=== PATIENT | female | born 1945 | race Caucasian/White ===

== ENCOUNTER 2024-06-24 15:04 | Outpatient (CLI) | payer OTHER ==
[2024-06-24] MEDS ORDERED: iohexol 300mg/ml 100ml inj. ONE (15:33)
== END 2024-06-24 23:59 | disposition home or self-care (01) ==
LOC: RAD 15:04
PROVIDERS: ATTEND Urology
DX: N39.0 Urinary tract infection, site not specified (principal); K43.9 Ventral hernia without obstruction or gangrene
CPT/HCPCS: 74177; Q9967

== ENCOUNTER 2024-07-15 10:34 | Inpatient (IN) | payer OTHER ==
[~2024-07-15] VITALS: Ht 165.1 cm; Wt 91.4 kg
[2024-07-15] VITALS (18 sets, daily range): BP systolic 97–136; BP diastolic 34–98; PULSE 77–96; RESP 16–19; TEMP 97–98.8; O2SAT 92–100
[~2024-07-15 10:34] MED LIST: simethicone 40mg/0.6ml oral drops 30ml ONE
[2024-07-15 11:11] LABS: BASOPHILS % (AUTO) 0.3 % (0-1); EOSINOPHILS # (AUTO) 0.2 X10'3 (0-0.9); EOSINOPHILS % (AUTO) 1.5 % (0-6); HEMATOCRIT 23.2 % (35.0-45.0); HEMOGLOBIN 7.5 g/dl (12.0-16.0); LYMPHOCYTES % (AUTO) 6.6 % (21-51); MEAN CORPUSCULAR HEMOGLOBIN 24.8 PG (27.0-31.0); MEAN CORPUSCULAR HGB CONC 32.2 g/dL (33.0-36.5); MEAN CORPUSCULAR VOLUME 77.1 FL (78-98); MEAN PLATELET VOLUME 8.4 FL (7.4-10.4); MONOCYTES # (AUTO) 1.1 X10'3 (0-0.9); MONOCYTES % (AUTO) 7.3 % (2-12); NEUTROPHILS % (AUTO) 84.3 % (42-75); PLATELET COUNT 242 X10'3 (140-440); RED CELL DISTRIBUTION WIDTH 15.5 % (11.5-14.5); WHITE BLOOD COUNT 15.4 X10'3 (4.5-11.0)
[2024-07-15 11:27] LABS: ALANINE AMINOTRANSFERASE 11 U/L (12-78); ALBUMIN 2.9 G/DL (3.4-5.0); ALBUMIN/GLOBULIN RATIO 1.2 (1.1-1.5); ALKALINE PHOSPHATASE 61 IU/L (46-116); ANION GAP 7 (8-16); ASPARTATE AMINO TRANSFERASE 10 U/L (10-37); BILIRUBIN,TOTAL 0.4 MG/DL (0.1-1.0); BLOOD UREA NITROGEN 42 MG/DL (7-18); BUN/CREATININE RATIO 51.2 (10.0-20.0); CALCIUM 8.1 MG/DL (8.5-10.1); CHLORIDE 108 MMOL/L (99-107); CREATININE 0.82 MG/DL (0.40-0.90); GLUCOSE 153 MG/DL (70-104); LIPASE 38 U/L (16-77); POTASSIUM 3.9 MMOL/L (3.5-5.1); SODIUM 140 MMOL/L (135-145); TOTAL PROTEIN 5.4 G/DL (6.4-8.2); eCRCL 53 ML/MIN; eGFR 68 ML/MIN
[2024-07-15] MEDS: pantoprazole 40 MG vial IV ONE ×2 (11:30→19:04)
[2024-07-15] MEDS: normal saline 1000ml 1,000 ML IV ONE (11:30)
[2024-07-15] MEDS ORDERED: iohexol 300mg/ml 100ml inj. ONE (11:33)
[2024-07-15 13:19] LABS: BILIRUBIN,URINE NEGATIVE (Neg); CLARITY,URINE CLEAR (Clear); COLOR,URINE STRAW (Yellow); GLUCOSE, URINE NEGATIVE (Neg); KETONES,URINE NEGATIVE (Neg); LEUKOCYTE ESTERASE ,URINE NEGATIVE (Neg); NITRITES, URINE NEGATIVE (Neg); OCCULT BLOOD,URINE NEGATIVE (Neg); PH,URINE 5.5 (4.8-8.0); PROTEIN,URINE NEGATIVE (Neg); UROBILINOGEN,URINE 0.2 E.U/dL (0.2-1.0)
[2024-07-15 13:23] LABS: UA COLLECTION TYPE STRAIGHT CATH
[2024-07-15] MEDS: ondansetron/PF 4mg/2ml inj IM ONE (13:44)
[2024-07-15] MEDS ORDERED: IRBE300T26 PO (13:47)
[2024-07-15] MEDS ORDERED: METH1TAB32 PO (13:47)
[2024-07-15] MEDS ORDERED: ATOR20TA66 PO (13:47)
[2024-07-15] MEDS ORDERED: CARV-50 PO (13:47)
[2024-07-15] MEDS ORDERED: DICL75TA28 PO (13:47)
[2024-07-15] MEDS: octreotide 100mcg/1 ml ampule IV ONE (13:47)
[2024-07-15] MEDS ORDERED: ESTR42.510 (13:47)
[2024-07-15] MEDS ORDERED: magnesium sulf-water 2g/50mL 50 ML IV PRN (14:55)
[2024-07-15] MEDS ORDERED: potassium Cl 20 mEq SR tablet PO PRN ×2 (14:55)
[2024-07-15] MEDS ORDERED: potassium Cl 40MEQ/1/2NS 520ml 520 ML IV PRN (14:55)
[2024-07-15] MEDS ORDERED: DEXTROSE 15 GM of carb/4 tabs (each vial/BOTTLE has 4 tablets) PO PRN ×2 (14:55)
[2024-07-15] MEDS ORDERED: glucagon, human recombinant 1mg kit SUBCUT PRN (14:55)
[2024-07-15] MEDS ORDERED: dextrose 50%-water 50ml dispensing syringe IV PRN ×2 (14:55)
[2024-07-15] MEDS ORDERED: magnesium Cl slow-release 64mg tablet PO PRN (14:55)
[2024-07-15] MEDS ORDERED: magnesium sulf-water 4G/100mL 100 ML IV PRN (14:55)
[2024-07-15 15:35] LABS: HEMOGLOBIN A1C 5.8 % (4.5-6.2)
[2024-07-15 15:48] LABS: CHOL/HDL RATIO 4.5 (0.00-4.99); CHOLESTEROL 134 MG/DL (0-200); HDL CHOLESTEROL 30 MG/DL (35-60); LDL CHOLESTEROL 74 MG/DL (50-100); TRIGLYCERIDES 139 MG/DL (20-135)
[2024-07-15] MEDS ORDERED: LIDOcaine 2% Viscous 15ml cup ONE (15:48)
[2024-07-15] MEDS ORDERED: pantoprazole 40MG/NS 100ML BAG 100 ML IV SCH (16:00)
[2024-07-15] MEDS ORDERED: fentaNYL/PF 50MCG/1 ML 2ML syringe ONE (16:41)
[2024-07-15] MEDS ORDERED: MIDAZolam 1 MG/ML 5ML VIAL ONE (16:41)
[2024-07-15] MEDS ORDERED: INSULIN LISPRO 100 UNIT/ML INSULN.PEN MULTI-DOSE SQ SCH (17:00)
[2024-07-15] MEDS: HYDROcodone/acetaminophen 5mg/325mg tablet PO ONE (17:30)
[2024-07-15] MEDS: normal saline 1000ml 1,000 ML IV SCH (19:04)
[2024-07-15] MEDS: octreotide inj. 500 MCG in normal saline 100ml IV soln 97.5 ML IV SCH (19:05)
[2024-07-15] MEDS: K and/or MAG REPLACEMENT MC SCH (19:39)
[2024-07-15 19:47] LABS: HEMATOCRIT 25.2 % (35.0-45.0); HEMOGLOBIN 8.2 g/dl (12.0-16.0); MEAN CORPUSCULAR HEMOGLOBIN 25.7 PG (27.0-31.0); MEAN CORPUSCULAR HGB CONC 32.7 g/dL (33.0-36.5); MEAN CORPUSCULAR VOLUME 78.7 FL (78-98); PLATELET COUNT 205 X10'3 (140-440); RED CELL DISTRIBUTION WIDTH 16.5 % (11.5-14.5); WHITE BLOOD COUNT 11.5 X10'3 (4.5-11.0)
[2024-07-15] MEDS: carVEDilol 12.5mg tablet PO SCH (20:31)
[2024-07-15] MEDS: pantoprazole 40MG/NS 100ML BAG 100 ML IV SCH (20:31)
[2024-07-16 01:40] LABS: HEMATOCRIT 23.5 % (35.0-45.0); HEMOGLOBIN 7.7 g/dl (12.0-16.0); MEAN CORPUSCULAR HEMOGLOBIN 25.4 PG (27.0-31.0); MEAN PLATELET VOLUME 8.3 FL (7.4-10.4); PLATELET COUNT 190 X10'3 (140-440); RED BLOOD COUNT 3.05 X10'6 (4.20-5.60); RED CELL DISTRIBUTION WIDTH 16.3 % (11.5-14.5); WHITE BLOOD COUNT 9.6 X10'3 (4.5-11.0)
[2024-07-16] MEDS: ondansetron/PF 4mg/2ml inj IV PRN (02:33)
[2024-07-16 06:15] LABS: BASOPHILS % (AUTO) 0.5 % (0-1); EOSINOPHILS # (AUTO) 0.2 X10'3 (0-0.9); EOSINOPHILS % (AUTO) 1.7 % (0-6); HEMATOCRIT 22.6 % (35.0-45.0); HEMOGLOBIN 7.4 g/dl (12.0-16.0); LYMPHOCYTES % (AUTO) 11.2 % (21-51); MEAN CORPUSCULAR HGB CONC 32.9 g/dL (33.0-36.5); MEAN CORPUSCULAR VOLUME 78.9 FL (78-98); MEAN PLATELET VOLUME 8.6 FL (7.4-10.4); MONOCYTES # (AUTO) 0.8 X10'3 (0-0.9); MONOCYTES % (AUTO) 9.1 % (2-12); NEUTROPHILS # (AUTO) 7.1 X10'3 (1.8-7.7); NEUTROPHILS % (AUTO) 77.5 % (42-75); PLATELET COUNT 180 X10'3 (140-440); RED BLOOD COUNT 2.87 X10'6 (4.20-5.60); RED CELL DISTRIBUTION WIDTH 16.5 % (11.5-14.5); WHITE BLOOD COUNT 9.1 X10'3 (4.5-11.0)
[2024-07-16 06:18] LABS: INR 1.1 INR; PROTHROMBIN TIME 11.3 SECONDS (9.0-12.0)
[2024-07-16 06:25] LABS: ALANINE AMINOTRANSFERASE 13 U/L (12-78); ALBUMIN/GLOBULIN RATIO 1.2 (1.1-1.5); ALKALINE PHOSPHATASE 58 IU/L (46-116); ANION GAP 6 (8-16); ASPARTATE AMINO TRANSFERASE 22 U/L (10-37); BILIRUBIN,TOTAL 2.4 MG/DL (0.1-1.0); BLOOD UREA NITROGEN 29 MG/DL (7-18); BUN/CREATININE RATIO 36.7 (10.0-20.0); CALCIUM 8.1 MG/DL (8.5-10.1); CHLORIDE 110 MMOL/L (99-107); CREATININE 0.79 MG/DL (0.40-0.90); GLUCOSE 144 MG/DL (70-104); MAGNESIUM 1.8 MG/DL (1.5-2.4); POTASSIUM 4.2 MMOL/L (3.5-5.1); SODIUM 139 MMOL/L (135-145); TOTAL CARBON DIOXIDE 23.2 MMOL/L (24-32); TOTAL PROTEIN 5.6 G/DL (6.4-8.2); eCRCL 55 ML/MIN; eGFR 71 ML/MIN
[2024-07-16 08:00] VITALS: BP_SYST 105; BP_SYST 111; BP_SYST 129; BP_DIAS 41; BP_DIAS 44; BP_DIAS 51; PULSE 76; PULSE 85; PULSE 86
[2024-07-16] MEDS: docusate sod 100mg capsule PO SCH (12:48)
[2024-07-16 13:31] LABS: HEMATOCRIT 22.1 % (35.0-45.0); HEMOGLOBIN 7.1 g/dl (12.0-16.0); MEAN CORPUSCULAR HEMOGLOBIN 25.5 PG (27.0-31.0); MEAN CORPUSCULAR VOLUME 79.7 FL (78-98); MEAN PLATELET VOLUME 8.6 FL (7.4-10.4); PLATELET COUNT 114 X10'3 (140-440); RED BLOOD COUNT 2.77 X10'6 (4.20-5.60); RED CELL DISTRIBUTION WIDTH 16.4 % (11.5-14.5); WHITE BLOOD COUNT 7.5 X10'3 (4.5-11.0)
[2024-07-16] MEDS: magnesium hydroxide 30ml (MOM) UD suspension PO PRN (15:21)
[2024-07-16 18:00] VITALS: BP 140/62; PULSE 80; RESP 18; TEMP 98.6; O2SAT 97
[2024-07-16 20:00] VITALS: BP_SYST 106; BP_SYST 111; BP_SYST 89; BP_DIAS 26; BP_DIAS 30; BP_DIAS 31; PULSE 71; PULSE 75; PULSE 80
[2024-07-16 22:00] VITALS: BP 106/30; PULSE 75; RESP 16; TEMP 98; O2SAT 97
[2024-07-16] MEDS: aspirin 325mg tablet PO ONE (22:40)
[2024-07-16] MEDS ORDERED: nitroGLYCERIN 0.4mg SUBLingual tab SL PRN (22:40)
[2024-07-17] VITALS (8 sets, daily range): BP systolic 93–128; BP diastolic 43–55; PULSE 70–76; RESP 16–18; TEMP 97.3–98.3; O2SAT 96–97
[2024-07-17] MEDS: morphine 2 MG/ML inj. syringe IV ONE (02:00)
[2024-07-17 07:35] LABS: BASOPHILS % (AUTO) 0.2 % (0-1); EOSINOPHILS # (AUTO) 0.2 X10'3 (0-0.9); EOSINOPHILS % (AUTO) 2.5 % (0-6); LYMPHOCYTES # (AUTO) 0.8 X10'3 (1.1-4.8); LYMPHOCYTES % (AUTO) 10.1 % (21-51); MEAN CORPUSCULAR HEMOGLOBIN 25.3 PG (27.0-31.0); MEAN CORPUSCULAR HGB CONC 32.1 g/dL (33.0-36.5); MEAN CORPUSCULAR VOLUME 78.6 FL (78-98); MEAN PLATELET VOLUME 8.3 FL (7.4-10.4); MONOCYTES # (AUTO) 0.6 X10'3 (0-0.9); MONOCYTES % (AUTO) 8.2 % (2-12); NEUTROPHILS # (AUTO) 6.1 X10'3 (1.8-7.7); PLATELET COUNT 158 X10'3 (140-440); RED BLOOD COUNT 2.58 X10'6 (4.20-5.60); RED CELL DISTRIBUTION WIDTH 16.3 % (11.5-14.5); WHITE BLOOD COUNT 7.8 X10'3 (4.5-11.0)
[2024-07-17 07:47] LABS: ALANINE AMINOTRANSFERASE 14 U/L (12-78); ALBUMIN 2.8 G/DL (3.4-5.0); ALBUMIN/GLOBULIN RATIO 1.1 (1.1-1.5); ALKALINE PHOSPHATASE 51 IU/L (46-116); ANION GAP 4 (8-16); ASPARTATE AMINO TRANSFERASE 17 U/L (10-37); BILIRUBIN,TOTAL 0.4 MG/DL (0.1-1.0); BLOOD UREA NITROGEN 13 MG/DL (7-18); BUN/CREATININE RATIO 19.7 (10.0-20.0); CALCIUM 8.1 MG/DL (8.5-10.1); CHLORIDE 110 MMOL/L (99-107); CREATININE 0.66 MG/DL (0.40-0.90); GLUCOSE 111 MG/DL (70-104); POTASSIUM 3.6 MMOL/L (3.5-5.1); SODIUM 140 MMOL/L (135-145); TOTAL CARBON DIOXIDE 26.3 MMOL/L (24-32); TOTAL PROTEIN 5.3 G/DL (6.4-8.2); eCRCL 65 ML/MIN; eGFR 87 ML/MIN
[2024-07-17 07:49] LABS: HEMATOCRIT 20.3 % (35.0-45.0); HEMOGLOBIN 6.5 g/dl (12.0-16.0)
[2024-07-17] MEDS ORDERED: traMADol 50MG tablet PO PRN (15:15)
[2024-07-17 15:29] LABS: HEMATOCRIT 23.9 % (35.0-45.0); HEMOGLOBIN 7.9 g/dl (12.0-16.0); MEAN CORPUSCULAR HEMOGLOBIN 26.3 PG (27.0-31.0); MEAN CORPUSCULAR VOLUME 79.6 FL (78-98); MEAN PLATELET VOLUME 8.3 FL (7.4-10.4); PLATELET COUNT 204 X10'3 (140-440); RED BLOOD COUNT 3.01 X10'6 (4.20-5.60); RED CELL DISTRIBUTION WIDTH 17.4 % (11.5-14.5); WHITE BLOOD COUNT 11.2 X10'3 (4.5-11.0)
[2024-07-17] MEDS: PEG 3350/Na sulf,bicarb,Cl/KCl oral sol 4 liter bottle PO ONE (16:01)
[2024-07-17] MEDS: traMADol 50MG tablet PO PRN (16:17)
[2024-07-17] MEDS ORDERED: methyl salicylate/menthol cream 57gm TP SCH (21:00)
[2024-07-18] VITALS (15 sets, daily range): BP systolic 99–146; BP diastolic 37–87; PULSE 76–97; RESP 12–24; TEMP 97.6–98.5; O2SAT 90–96
[2024-07-18 07:09] LABS: BASOPHILS % (AUTO) 0.2 % (0-1); EOSINOPHILS # (AUTO) 0.2 X10'3 (0-0.9); EOSINOPHILS % (AUTO) 1.6 % (0-6); HEMATOCRIT 23.9 % (35.0-45.0); HEMOGLOBIN 7.8 g/dl (12.0-16.0); LYMPHOCYTES # (AUTO) 0.6 X10'3 (1.1-4.8); MEAN CORPUSCULAR HEMOGLOBIN 25.9 PG (27.0-31.0); MEAN CORPUSCULAR HGB CONC 32.8 g/dL (33.0-36.5); MEAN CORPUSCULAR VOLUME 79.1 FL (78-98); MEAN PLATELET VOLUME 8.4 FL (7.4-10.4); MONOCYTES % (AUTO) 8.3 % (2-12); NEUTROPHILS # (AUTO) 10.6 X10'3 (1.8-7.7); NEUTROPHILS % (AUTO) 84.9 % (42-75); PLATELET COUNT 178 X10'3 (140-440); RED BLOOD COUNT 3.02 X10'6 (4.20-5.60); RED CELL DISTRIBUTION WIDTH 17.1 % (11.5-14.5); WHITE BLOOD COUNT 12.4 X10'3 (4.5-11.0)
[2024-07-18 07:17] LABS: PROTHROMBIN TIME 10.7 SECONDS (9.0-12.0)
[2024-07-18 07:27] LABS: ALANINE AMINOTRANSFERASE 15 U/L (12-78); ALBUMIN 3.3 G/DL (3.4-5.0); ALBUMIN/GLOBULIN RATIO 1.2 (1.1-1.5); ALKALINE PHOSPHATASE 64 IU/L (46-116); ANION GAP 7 (8-16); ASPARTATE AMINO TRANSFERASE 15 U/L (10-37); BILIRUBIN,TOTAL 0.6 MG/DL (0.1-1.0); BLOOD UREA NITROGEN 8 MG/DL (7-18); BUN/CREATININE RATIO 11.6 (10.0-20.0); CALCIUM 8.3 MG/DL (8.5-10.1); CHLORIDE 107 MMOL/L (99-107); CREATININE 0.69 MG/DL (0.40-0.90); GLUCOSE 114 MG/DL (70-104); MAGNESIUM 1.9 MG/DL (1.5-2.4); POTASSIUM 3.6 MMOL/L (3.5-5.1); SODIUM 141 MMOL/L (135-145); TOTAL CARBON DIOXIDE 27.1 MMOL/L (24-32); TOTAL PROTEIN 6.1 G/DL (6.4-8.2); eCRCL 62 ML/MIN; eGFR 83 ML/MIN
[2024-07-18] MEDS ORDERED: MIDAZolam 1 MG/ML 5ML VIAL ONE (14:34)
[2024-07-18] MEDS ORDERED: fentaNYL/PF 50MCG/1 ML 2ML syringe ONE (14:34)
[2024-07-18] MEDS ORDERED: diphenhydrAMINE 50 mg/ml inj ONE (14:39)
[2024-07-18] MEDS: Melatonin 3mg tablet PO PRN (22:06)
[2024-07-19] VITALS (9 sets, daily range): BP systolic 87–147; BP diastolic 39–64; PULSE 76–82; RESP 15–19; TEMP 96.7–99.2; O2SAT 92–94
[2024-07-19 07:00] LABS: BASOPHILS % (AUTO) 0.1 % (0-1); EOSINOPHILS % (AUTO) 0.4 % (0-6); LYMPHOCYTES # (AUTO) 0.6 X10'3 (1.1-4.8); LYMPHOCYTES % (AUTO) 5.4 % (21-51); MEAN CORPUSCULAR HEMOGLOBIN 25.7 PG (27.0-31.0); MEAN CORPUSCULAR VOLUME 80.4 FL (78-98); MEAN PLATELET VOLUME 8.4 FL (7.4-10.4); MONOCYTES # (AUTO) 1.2 X10'3 (0-0.9); MONOCYTES % (AUTO) 10.1 % (2-12); PLATELET COUNT 154 X10'3 (140-440); RED BLOOD COUNT 2.65 X10'6 (4.20-5.60); RED CELL DISTRIBUTION WIDTH 17.1 % (11.5-14.5); WHITE BLOOD COUNT 11.9 X10'3 (4.5-11.0)
[2024-07-19 07:07] LABS: INR 1.1 INR; PROTHROMBIN TIME 11.8 SECONDS (9.0-12.0)
[2024-07-19 07:09] LABS: HEMATOCRIT 21.3 % (35.0-45.0); HEMOGLOBIN 6.8 g/dl (12.0-16.0)
[2024-07-19 07:18] LABS: ALANINE AMINOTRANSFERASE 16 U/L (12-78); ALBUMIN 2.6 G/DL (3.4-5.0); ALBUMIN/GLOBULIN RATIO 0.9 (1.1-1.5); ALKALINE PHOSPHATASE 57 IU/L (46-116); ANION GAP 8 (8-16); ASPARTATE AMINO TRANSFERASE 9 U/L (10-37); BILIRUBIN,TOTAL 0.5 MG/DL (0.1-1.0); BLOOD UREA NITROGEN 10 MG/DL (7-18); BUN/CREATININE RATIO 15.6 (10.0-20.0); CHLORIDE 104 MMOL/L (99-107); CREATININE 0.64 MG/DL (0.40-0.90); GLUCOSE 137 MG/DL (70-104); MAGNESIUM 1.7 MG/DL (1.5-2.4); POTASSIUM 3.3 MMOL/L (3.5-5.1); SODIUM 140 MMOL/L (135-145); TOTAL CARBON DIOXIDE 27.6 MMOL/L (24-32); TOTAL PROTEIN 5.4 G/DL (6.4-8.2); eCRCL 67 ML/MIN; eGFR 90 ML/MIN
[2024-07-19 10:11] LABS: MEAN CORPUSCULAR HEMOGLOBIN 26.4 PG (27.0-31.0); MEAN CORPUSCULAR HGB CONC 32.7 g/dL (33.0-36.5); MEAN CORPUSCULAR VOLUME 80.7 FL (78-98); MEAN PLATELET VOLUME 9.1 FL (7.4-10.4); PLATELET COUNT 161 X10'3 (140-440); RED BLOOD COUNT 2.64 X10'6 (4.20-5.60); RED CELL DISTRIBUTION WIDTH 17.2 % (11.5-14.5); WHITE BLOOD COUNT 11.6 X10'3 (4.5-11.0)
[2024-07-19 10:25] LABS: HEMATOCRIT 21.3 % (35.0-45.0)
[2024-07-19] MEDS: pantoprazole 40MG/NS 100ML BAG 100 ML IV SCH (11:34)
[2024-07-19] MEDS: methyl salicylate/menthol cream 57gm TP PRN (11:39)
[2024-07-19] MEDS: polyvinyl alcohol eye drops 15ML BOTTLE EACHEYE PRN (11:39)
[2024-07-19 15:52] LABS: MEAN CORPUSCULAR HEMOGLOBIN 26.5 PG (27.0-31.0); MEAN CORPUSCULAR HGB CONC 32.9 g/dL (33.0-36.5); MEAN CORPUSCULAR VOLUME 80.7 FL (78-98); MEAN PLATELET VOLUME 8.8 FL (7.4-10.4); PLATELET COUNT 153 X10'3 (140-440); RED BLOOD COUNT 2.58 X10'6 (4.20-5.60); RED CELL DISTRIBUTION WIDTH 17.9 % (11.5-14.5); WHITE BLOOD COUNT 10.4 X10'3 (4.5-11.0)
[2024-07-19 15:59] LABS: HEMATOCRIT 20.8 % (35.0-45.0); HEMOGLOBIN 6.8 g/dl (12.0-16.0)
[2024-07-20] MEDS: mag hydrox/Alum hydrox/simeth 30ml oral suspension PO PRN (04:10)
[2024-07-20 04:48] LABS: BASOPHILS % (AUTO) 0.3 % (0-1); EOSINOPHILS # (AUTO) 0.2 X10'3 (0-0.9); EOSINOPHILS % (AUTO) 1.9 % (0-6); HEMATOCRIT 23.5 % (35.0-45.0); HEMOGLOBIN 7.7 g/dl (12.0-16.0); LYMPHOCYTES # (AUTO) 0.6 X10'3 (1.1-4.8); LYMPHOCYTES % (AUTO) 7.1 % (21-51); MEAN CORPUSCULAR HEMOGLOBIN 26.5 PG (27.0-31.0); MEAN CORPUSCULAR HGB CONC 32.8 g/dL (33.0-36.5); MEAN CORPUSCULAR VOLUME 80.8 FL (78-98); MEAN PLATELET VOLUME 8.3 FL (7.4-10.4); MONOCYTES # (AUTO) 0.9 X10'3 (0-0.9); MONOCYTES % (AUTO) 10.9 % (2-12); NEUTROPHILS # (AUTO) 6.7 X10'3 (1.8-7.7); NEUTROPHILS % (AUTO) 79.8 % (42-75); PLATELET COUNT 151 X10'3 (140-440); RED BLOOD COUNT 2.91 X10'6 (4.20-5.60); RED CELL DISTRIBUTION WIDTH 17.7 % (11.5-14.5); WHITE BLOOD COUNT 8.4 X10'3 (4.5-11.0)
[2024-07-20 04:58] LABS: INR 1.1 INR; PROTHROMBIN TIME 11.4 SECONDS (9.0-12.0)
[2024-07-20 05:02] LABS: ALANINE AMINOTRANSFERASE 28 U/L (12-78); ALBUMIN 2.7 G/DL (3.4-5.0); ALBUMIN/GLOBULIN RATIO 0.9 (1.1-1.5); ALKALINE PHOSPHATASE 94 IU/L (46-116); ANION GAP 10 (8-16); ASPARTATE AMINO TRANSFERASE 22 U/L (10-37); BILIRUBIN,TOTAL 0.6 MG/DL (0.1-1.0); BLOOD UREA NITROGEN 16 MG/DL (7-18); BUN/CREATININE RATIO 27.6 (10.0-20.0); CALCIUM 8.1 MG/DL (8.5-10.1); CHLORIDE 102 MMOL/L (99-107); CREATININE 0.58 MG/DL (0.40-0.90); GLUCOSE 127 MG/DL (70-104); POTASSIUM 3.6 MMOL/L (3.5-5.1); SODIUM 138 MMOL/L (135-145); TOTAL CARBON DIOXIDE 26.3 MMOL/L (24-32); TOTAL PROTEIN 5.6 G/DL (6.4-8.2); eCRCL 74 ML/MIN; eGFR > 90 ML/MIN
[2024-07-20 06:22] VITALS: BP 125/58; PULSE 67; RESP 18; TEMP 96.7; O2SAT 94
[2024-07-20 08:00] VITALS: BP 95/26; PULSE 66; RESP 16; O2SAT 98
[2024-07-20 10:00] VITALS: BP_SYST 105; BP_SYST 98; BP_DIAS 40; BP_DIAS 56; PULSE 60; PULSE 61; RESP 16; TEMP 98.2; O2SAT 98
[2024-07-20 12:28] LABS: HEMOGLOBIN 7.8 g/dl (12.0-16.0)
[2024-07-20 12:29] LABS: HEMATOCRIT 23.3 % (35.0-45.0); MEAN CORPUSCULAR HEMOGLOBIN 27.1 PG (27.0-31.0); MEAN CORPUSCULAR HGB CONC 33.3 g/dL (33.0-36.5); MEAN CORPUSCULAR VOLUME 81.3 FL (78-98); MEAN PLATELET VOLUME 9.4 FL (7.4-10.4); PLATELET COUNT 160 X10'3 (140-440); RED BLOOD COUNT 2.87 X10'6 (4.20-5.60); RED CELL DISTRIBUTION WIDTH 17.4 % (11.5-14.5); WHITE BLOOD COUNT 10.2 X10'3 (4.5-11.0)
[2024-07-20 18:00] VITALS: BP 106/58; PULSE 75; RESP 16; TEMP 98; O2SAT 96
[2024-07-20 18:23] LABS: HEMOGLOBIN 7.8 g/dl (12.0-16.0)
[2024-07-20 18:24] LABS: HEMATOCRIT 23.5 % (35.0-45.0); MEAN CORPUSCULAR HGB CONC 33.3 g/dL (33.0-36.5); MEAN CORPUSCULAR VOLUME 80.9 FL (78-98); MEAN PLATELET VOLUME 9.3 FL (7.4-10.4); RED CELL DISTRIBUTION WIDTH 17.7 % (11.5-14.5); WHITE BLOOD COUNT 9.6 X10'3 (4.5-11.0)
[2024-07-20 19:03] LABS: PLATELET COUNT 173 X10'3 (140-440)
[2024-07-20 20:00] VITALS: BP_SYST 103; BP_SYST 106; BP_DIAS 42; BP_DIAS 46; PULSE 61; PULSE 63; RESP 18; O2SAT 92
[2024-07-20] MEDS: pantoprazole 40mg Tablet.DR PO SCH (20:48)
[2024-07-20 22:00] VITALS: BP 124/37; PULSE 64; RESP 18; TEMP 97.9; O2SAT 94
[2024-07-20 23:57] LABS: HEMATOCRIT 23.9 % (35.0-45.0); MEAN CORPUSCULAR HEMOGLOBIN 26.8 PG (27.0-31.0); MEAN CORPUSCULAR HGB CONC 33.3 g/dL (33.0-36.5); MEAN CORPUSCULAR VOLUME 80.4 FL (78-98); MEAN PLATELET VOLUME 8.5 FL (7.4-10.4); PLATELET COUNT 177 X10'3 (140-440); RED BLOOD COUNT 2.97 X10'6 (4.20-5.60); RED CELL DISTRIBUTION WIDTH 17.1 % (11.5-14.5); WHITE BLOOD COUNT 7.8 X10'3 (4.5-11.0)
[2024-07-21 06:00] VITALS: BP 119/36; PULSE 58; RESP 16; TEMP 97.3; O2SAT 96
[2024-07-21 08:00] VITALS: BP_SYST 111; BP_SYST 126; BP_SYST 132; BP_DIAS 34; BP_DIAS 39; BP_DIAS 43; PULSE 69; PULSE 75; PULSE 78
[2024-07-21 08:22] LABS: HEMATOCRIT 23.2 % (35.0-45.0); HEMOGLOBIN 7.6 g/dl (12.0-16.0); MEAN CORPUSCULAR HEMOGLOBIN 26.3 PG (27.0-31.0); MEAN CORPUSCULAR HGB CONC 32.8 g/dL (33.0-36.5); MEAN CORPUSCULAR VOLUME 80.4 FL (78-98); MEAN PLATELET VOLUME 8.8 FL (7.4-10.4); PLATELET COUNT 174 X10'3 (140-440); RED BLOOD COUNT 2.88 X10'6 (4.20-5.60); RED CELL DISTRIBUTION WIDTH 17.6 % (11.5-14.5); WHITE BLOOD COUNT 7.5 X10'3 (4.5-11.0)
[2024-07-21 10:00] VITALS: BP 111/43; PULSE 69; RESP 14; TEMP 97.7; O2SAT 94
[2024-07-21] MEDS: LORazepam 0.5 MG tablet PO PRN (14:30)
[2024-07-21 18:00] VITALS: BP 137/44; PULSE 66; RESP 17; TEMP 97.6; O2SAT 95
[2024-07-21 20:00] VITALS: BP_SYST 135; BP_SYST 138; BP_SYST 147; BP_DIAS 49; BP_DIAS 53; BP_DIAS 70; PULSE 61; PULSE 66; PULSE 76
[2024-07-21 22:00] VITALS: BP 138/49; PULSE 66; RESP 16; TEMP 98; O2SAT 95
[2024-07-22 06:00] VITALS: BP 137/55; PULSE 69; RESP 16; TEMP 97.9; O2SAT 92
[2024-07-22 08:00] VITALS: RESP 16; O2SAT 92
[2024-07-22 08:28] LABS: HEMATOCRIT 24.1 % (35.0-45.0); HEMOGLOBIN 7.9 g/dl (12.0-16.0); MEAN CORPUSCULAR HEMOGLOBIN 26.4 PG (27.0-31.0); MEAN CORPUSCULAR HGB CONC 32.6 g/dL (33.0-36.5); MEAN PLATELET VOLUME 8.6 FL (7.4-10.4); PLATELET COUNT 218 X10'3 (140-440); RED BLOOD COUNT 2.97 X10'6 (4.20-5.60); RED CELL DISTRIBUTION WIDTH 17.5 % (11.5-14.5); WHITE BLOOD COUNT 6.7 X10'3 (4.5-11.0)
[2024-07-22 10:30] VITALS: BP 149/57; PULSE 61; RESP 18; TEMP 98.1
[2024-07-22] MEDS ORDERED: PANT-47 PO ×2 (12:22→12:23)
[2024-07-22] MEDS ORDERED: GABA-535 PO (12:24)
[2024-07-22] MEDS ORDERED: IRON-6 PO (12:26)
[2024-07-22] MEDS ORDERED: TRAM-528 PO (12:29)
[2024-08-13 12:24] LABS: OCCULT BLOOD STOOL POSITIVE (Neg)
== END 2024-07-22 15:40 | disposition home health service (06) | DRG 811 ==
LOC: ER 10:34 → ED HOLD 12:44 → UNDOADMIN 12:44 → ED HOLD 15:13 → ORTHO 4S 17:55
PROVIDERS: ADMIT Family Medicine; ATTEND Family Medicine
PROC: 30233N1 Transfusion of Nonautologous Red Blood Cells into Peripheral Vein, Percutaneous Approach (ICD-10-PCS; principal; 2024-07-15)
PROC: 0DB78ZX Excision of Stomach, Pylorus, Via Natural or Artificial Opening Endoscopic, Diagnostic (ICD-10-PCS; 2024-07-15)
PROC: BW211ZZ Computerized Tomography (CT Scan) of Abdomen and Pelvis using Low Osmolar Contrast (ICD-10-PCS; 2024-07-15)
PROC: 0DJD8ZZ Inspection of Lower Intestinal Tract, Via Natural or Artificial Opening Endoscopic (ICD-10-PCS; 2024-07-18)
DX: D50.9 Iron deficiency anemia, unspecified (principal); K25.4 Chronic or unspecified gastric ulcer with hemorrhage; A09 Infectious gastroenteritis and colitis, unspecified; I51.0 Cardiac septal defect, acquired; K31.89 Other diseases of stomach and duodenum; I10 Essential (primary) hypertension; E78.5 Hyperlipidemia, unspecified; G89.29 Other chronic pain; T39.395A Adverse effect of other nonsteroidal anti-inflammatory drugs [NSAID], initial encounter; Z66 Do not resuscitate; K59.00 Constipation, unspecified; G31.89 Other specified degenerative diseases of nervous system; Z79.1 Long term (current) use of non-steroidal anti-inflammatories (NSAID); Z88.8 Allergy status to other drugs, medicaments and biological substances; Z90.710 Acquired absence of both cervix and uterus; Z87.891 Personal history of nicotine dependence; Y92.89 Other specified places as the place of occurrence of the external cause; K57.30 Diverticulosis of large intestine without perforation or abscess without bleeding
CPT/HCPCS: 36415; 36430; 43239; 45378; 72148; 74178; 80053; 80061; 81003; 82272; 82948; 83036; 83690; 83735; 84484; 85025; 85027; 85610; 86885; 86900; 86901; 86920; 87081; 88305; 88313; 88342; 93005; 93306; 96374; 96375; 97161; 97530; 99152; 99285; A4353; A4620; C1758; G0378; J1200; J1815; J2250; J2270; J2354; J2405; J2470; J3010; J7030; J7040; P9016; Q9967

== ENCOUNTER 2024-08-25 10:11 | Day surgery (SDC) | payer OTHER ==
[2024-08-25] VITALS (7 sets, daily range): BP systolic 90–176; BP diastolic 34–56; PULSE 53–63; RESP 8–18; O2SAT 94–99
[~2024-08-25] VITALS: Ht 165.1 cm; Wt 85.4 kg
[~2024-08-25 10:11] MED LIST changes: +ATOR20TA66 PO; +CARV-50 PO; +ESTR42.510; +IRBE300T26 PO; +IRON-6 PO; +METH1TAB32 PO; +PANT-47 PO; +PANT40TA54 PO; +TRAM-528 PO; +[UNRECOGNIZED DRUG - OTHER] PO; -simethicone 40mg/0.6ml oral drops 30ml ONE
[2024-08-25] MEDS ORDERED: simethicone 40mg/0.6ml oral drops 30ml ONE (11:05)
[2024-08-25] MEDS ORDERED: propofol inj 20 ML IV ONE (11:11)
== END 2024-08-25 14:45 | disposition home or self-care (01) ==
LOC: GI LAB 10:11
PROVIDERS: ATTEND Internal Medicine Gastroenterology
DX: K25.0 Acute gastric ulcer with hemorrhage (principal); I10 Essential (primary) hypertension; E11.9 Type 2 diabetes mellitus without complications; I25.2 Old myocardial infarction; Z86.73 Personal history of transient ischemic attack (TIA), and cerebral infarction without residual deficits; Z88.8 Allergy status to other drugs, medicaments and biological substances
CPT/HCPCS: 43235; A4618; A4620; J2704; J7030; Z7512; 99152

== ENCOUNTER 2025-03-09 14:01 | Outpatient (CLI) | payer OTHER | END 2025-03-09 23:59 | disposition home or self-care (01) | LOC: CARD DIAG 14:01 | PROVIDERS: ATTEND Internal Medicine Cardiovascular Disease | DX: I08.8 Other rheumatic multiple valve diseases (principal); I42.2 Other hypertrophic cardiomyopathy; I42.8 Other cardiomyopathies | CPT/HCPCS: 93306 ==

== ENCOUNTER 2025-04-14 15:41 | Outpatient (CLI) | payer OTHER ==
--- NOTE | 2025-04-14 18:16 | CARDIOLOGY REPORT ---
APPROVED REPORT EXAM: Limited 2D, Doppler, and color-flow Echocardiogram. Patient Location: OUT-PATIENT Blood Pressure: 94/34 mmHg Heart Rate: 78 bpm Rhythm: SINUS Indications HYPERTROPHIC CARDIOMYOPATHY 2 MONTH CAMZYOS (5 MG) FOLLOW UP Cargo Vessel Stewardess: Beverly Lubin MD Previous echo: 03/09/25 [facility] (EF 70-75%, septal knuckle 1.8 cm, LV gradient 62 mmHg and does not incre ase with Valsalva maneuver, mild AI, mild MS, trace MR, trace TR) 2D Dimensions IVSd 1.5 (0.7-1.1cm) LVDd 4.0 cm PWd 1.6 (0.7-1.1cm) IVSs 1.5 (0.8-1.2cm) LVDs 2.9 (2.5-4.0cm) PWs 1.6 (0.8-1.2cm) LVEF(%) 80.0 (>50%) FS (%) 26.4 % SV 36.1 ml Aortic Valve AoV Peak Nilesh. 296.2 cm/s AoV VTI 37.0 cm AO Peak GR. 35.1 mmHg AO Mean GR. 24 mmHg AI P 1/2 Time 396 ms LEFT VENTRICLE Normal LV size and hyperdynamic function. Moderate concentric hypertrophy. Thickest LV segment is nancy sured at: 1.8 cm at the septal knuckle. LV gradient measures 180 mmHg, increasing to 195 mmHg with Va lsalva maneuver. ?Subaortic membrane visualized in images 21, 23, 60, 61, 62. LVEF is 80-85%. RIGHT VENTRICLE RV is normal size and function. AORTIC VALVE Trileaflet aortic valve appears to open well without gross stenosis, although difficult to evaluate. Mild insufficiency. 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 Trace regurgitation. TRICUSPID VALVE TV appears structurally normal with trace regurgitation. PERICARDIUM Normal pericardium. No effusion. Other Information Study Quality: Adequate Conclusion Normal LV size and hyperdynamic function. Moderate concentric hypertrophy. Thickest LV segment is me asured at: 1.8 cm at the septal knuckle. LV gradient measures 180 mmHg, increasing to 195 mmHg with V alsalva maneuver. ?Subaortic membrane visualized in images 21, 23, 60, 61, 62. LVEF is 80-85%. RV is normal size and function. Trileaflet aortic valve appears to open well without gross stenosis, although difficult to evaluate. Mild insufficiency. 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 Trace regurgitation. TV appears structurally normal with trace regurgitation. Normal pericardium. No effusion.
== END 2025-04-14 23:59 | disposition home or self-care (01) ==
LOC: CARD DIAG 15:41
PROVIDERS: ATTEND Internal Medicine Cardiovascular Disease
DX: I08.0 Rheumatic disorders of both mitral and aortic valves (principal); I42.2 Other hypertrophic cardiomyopathy; I42.8 Other cardiomyopathies
CPT/HCPCS: 93308

== ENCOUNTER 2025-05-11 14:33 | Outpatient (CLI) | payer OTHER ==
--- NOTE | 2025-05-12 18:33 | CARDIOLOGY REPORT ---
APPROVED REPORT EXAM: Comprehensive 2D, Doppler, and color-flow Echocardiogram. Patient Location: OUT-PATIENT Blood Pressure: 112/45 mmHg Heart Rate: 52 bpm Rhythm: SINUS BRADYCARDIA Indications HYPERTROPHIC CARDIOMYOPATHY 3 MONTH CAMZYOS (5 MG) FOLLOW UP Shopper'S Aide: Beverly Lubin MD Previous echo: 04/14/25 [facility] (EF 80-85%, LV gradient of 180 mmHg, increasing to 195 mmHg with Valsalva , ?subaortic membrane, mild AI, trace MR, trace TR) 2D Dimensions RVDd 3.7 cm IVSd 1.4 (0.7-1.1cm) LVDd 4.6 cm PWd 1.3 (0.7-1.1cm) IVSs 1.6 (0.8-1.2cm) LVDs 2.3 (2.5-4.0cm) PWs 1.7 (0.8-1.2cm) LVOT Diameter 1.99 (1.8-2.4cm) LVEF(%) 82.6 (>50%) FS (%) 51.3 % SV 82.3 ml M-Mode Dimensions Left Atrium(MM) 5.68 (2.5-4.0cm) Aortic Root 2.84 (2.2-3.7cm) Aortic Cusp Exc 1.99 (1.5-2.0cm) Aortic Valve AoV Peak Nilesh. 242.3 cm/s AoV VTI 61.8 cm AO Peak GR. 23.5 mmHg AO Mean GR. 15 mmHg LVOT VTI 45.26 cm LVOT Peak Nilesh. 175.4 cm/s CHIRAG (VMAX) 2.24 cm2 CHIRAG (VTI) 2.26 cm2 AI P 1/2 Time 408 ms Mitral Valve MV E Velocity 136.7 cm/s MV DECEL TIME 298 ms MV A Velocity 89.9 cm/s MV PHT 65 ms E/A Ratio 1.5 MVA (PHT) 3.38 cm2 Tricuspid Valve TR P. Velocity 198 cm/s TR Peak Gr. 16 mmHg LEFT VENTRICLE Normal LV size and hyperdynamic function. Moderate concentric hypertrophy. Thickest LV segment is nancy sured at: 1.8 cm at the septal knuckle. Increased LVOT velocity of 176 cm/s. Peak / mean LVOT gradien ts of 12 / 8 mmHg at rest. With CW Doppler, the highest gradient is measured at 45 mmHg and does not increase with Valsalva maneuver. Valsalva maneuver performed several times in different angles with s imilar results. Significantly improved from exam on 04/14/25. ?Subaortic membrane best visualized in a pical 5 chamber. Overall LVEF is 75-80%. RIGHT VENTRICLE RV is mildly dilated with normal systolic function. ATRIA LA appears at least moderately dilated. RA size appears normal. AORTIC VALVE Trileaflet AV appears mildly sclerotic without stenosis. Mild insufficiency. MITRAL VALVE Moderate MV annular calcification without stenosis. Trace regurgitation. TRICUSPID VALVE TV appears structurally normal with trace regurgitation. PULMONIC VALVE Normal PV without stenosis, physiologic insufficiency. GREAT VESSELS Aortic root is normal in size. PERICARDIUM Normal pericardium. No effusion. Conclusion Overall LVEF is 75-80%. Normal LV size and hyperdynamic function. Moderate concentric hypertrophy. Thickest LV segment is me asured at: 1.8 cm at the septal knuckle. Increased LVOT velocity of 176 cm/s. Peak / mean LVOT gradi ents of 12 / 8 mmHg at rest. With CW Doppler, the highest gradient is measured at 45 mmHg and does no t increase with Valsalva maneuver. Valsalva maneuver performed several times in different angles with similar results. Significantly improved from exam on 04/14/25 on [facility]. ?Subaortic membrane best vi sualized in apical 5 chamber. RV is mildly dilated with normal systolic function. Trileaflet AV appears mildly sclerotic without stenosis. Mild insufficiency. Moderate MV annular calcification without stenosis. Trace regurgitation. TV appears structurally normal with trace regurgitation. Normal PV without stenosis, physiologic insufficiency. Aortic root is normal in size. Normal pericardium. No effusion.
== END 2025-05-11 23:59 | disposition home or self-care (01) ==
LOC: CARD DIAG 14:33
PROVIDERS: ATTEND Internal Medicine Cardiovascular Disease
DX: I08.8 Other rheumatic multiple valve diseases (principal); I42.2 Other hypertrophic cardiomyopathy; I42.8 Other cardiomyopathies; R00.1 Bradycardia, unspecified
CPT/HCPCS: 93306

== ENCOUNTER 2025-06-09 15:13 | Outpatient (CLI) | payer OTHER ==
--- NOTE | 2025-06-09 18:17 | CARDIOLOGY REPORT ---
APPROVED REPORT EXAM: Comprehensive 2D, Doppler, and color-flow Echocardiogram. Patient Location: OUTPATIENT Blood Pressure: 125/53 mmHg Heart Rate: 69 bpm Rhythm: SINUS Indications HYPERTROPHIC CARDIOMYOPATHY 4 MONTH CAMZYOS (10 MG - INCREASED) FOLLOW UP Concrete Paver: Beverly Lubin MD Previous echo: 05/[facility]/25 [facility] (EF 75-80%, LVOT gradient of 12 mmHg, highest LV gradient is 45 mmHg and does not increase with Valsalva maneuver, mild AI, trace MR, trace TR) 2D Dimensions RVDd 3.9 cm IVSd 1.6 (0.7-1.1cm) LVDd 3.8 cm PWd 1.6 (0.7-1.1cm) IVSs 1.5 (0.8-1.2cm) LVDs 2.4 (2.5-4.0cm) PWs 1.9 (0.8-1.2cm) LVOT Diameter 1.97 (1.8-2.4cm) LVEF(%) 71.0 (>50%) Ao Asc Diam.3.48 cm FS (%) 37.9 % SV 42.4 ml M-Mode Dimensions Aortic Root 2.91 (2.2-3.7cm) Aortic Cusp Exc 1.99 (1.5-2.0cm) MV EPSS 0.2 (<0.5cm) Aortic Valve AoV Peak Nilesh. 218.5 cm/s AoV VTI 52.1 cm AO Peak GR. 19.1 mmHg AO Mean GR. 11 mmHg LVOT VTI 44.41 cm LVOT Peak Nilesh. 166.6 cm/s CHIRAG (VMAX) 2.31 cm2 CHIRAG (VTI) 2.59 cm2 AI P 1/2 Time 395 ms Mitral Valve MV E Velocity 135.6 cm/s MV DECEL TIME 305 ms MV A Velocity 89.7 cm/s MV PHT 82 ms E/A Ratio 1.5 MVA (PHT) 2.69 cm2 TDI E/Medial E' 17.3 Tricuspid Valve TR P. Velocity 192 cm/s TR Peak Gr. 15 mmHg Pulmonary Vein S2 Velocity 52.15 cm/s PVa [id number] msec LEFT VENTRICLE Small LV size and hyperdynamic function. Moderate concentric hypertrophy. Thickest LV segment is sumaya ured at: 1.8 cm at the septal knuckle. Increased LVOT velocity of 166 cm/s. Peak / mean LVOT gradient s of 11 / 7 mmHg. With CW Doppler, the highest gradient in the LV is measured at 17 mmHg at rest and does not increase with Valsalva maneuver. Valsalva maneuver performed several times in different angl es with similar results. Significantly improved from exam on 05/11/25. ?Subaortic membrane vs LVOT thad cium best visualized in apical 5 chamber. LVEF is 75-80%. RIGHT VENTRICLE RV is mildly dilated with normal systolic function. ATRIA LA appears at least moderately dilated. RA size appears normal. AORTIC VALVE Trileaflet AV appears mildly sclerotic without stenosis. Mild insufficiency. MITRAL VALVE Moderate MV annular calcification without stenosis. Trace regurgitation. TRICUSPID VALVE TV appears structurally normal with trace regurgitation. PULMONIC VALVE Normal PV without stenosis, physiologic insufficiency. GREAT VESSELS Aortic root is normal in size. Ascending aorta is normal in size. PERICARDIUM Normal pericardium. No effusion. Other Information Study Quality: Adequate Conclusion Small LV size and hyperdynamic function. Moderate concentric hypertrophy. Thickest LV segment is nancy sured at: 1.8 cm at the septal knuckle. Increased LVOT velocity of 166 cm/s. Peak / mean LVOT gradien ts of 11 / 7 mmHg. With CW Doppler, the highest gradient in the LV is measured at 17 mmHg at rest and does not increase with Valsalva maneuver. Valsalva maneuver performed several times in different ang les with similar results. Significantly improved from exam on 05/11/25. ?Subaortic membrane vs LVOT ca lcium best visualized in apical 5 chamber. LVEF is 75-80%. RV is mildly dilated with normal systolic function. LA appears at least moderately dilated. RA size appears normal. Trileaflet AV appears mildly sclerotic without stenosis. Mild insufficiency. Moderate MV annular calcification without stenosis. Trace regurgitation. TV appears structurally normal with trace regurgitation. Normal pericardium. No effusion.
== END 2025-06-09 23:59 | disposition home or self-care (01) ==
LOC: CARD DIAG 15:13
PROVIDERS: ATTEND Internal Medicine Cardiovascular Disease
DX: I08.8 Other rheumatic multiple valve diseases (principal); I42.2 Other hypertrophic cardiomyopathy; I42.8 Other cardiomyopathies
CPT/HCPCS: 93306

== ENCOUNTER 2025-07-14 13:49 | Outpatient (CLI) | payer OTHER ==
--- NOTE | 2025-07-14 18:38 | CARDIOLOGY REPORT ---
APPROVED REPORT EXAM: Comprehensive 2D, Doppler, and color-flow Echocardiogram. Patient Location: OUT-PATIENT Blood Pressure: 143/59 mmHg Heart Rate: 63 bpm Rhythm: SINUS Indications HYPERTROPHIC CARDIOMYOPATHY 5 MONTH CAMZYOS (10 MG) FOLLOW UP City Carrier Assistant: Beverly Lubin MD [facility] echo: [facility] (EF 75-80%, LV grad 17 mmHg, no inc w/Valsalva, mild AI, trace MR, trace TR) 2D Dimensions RVDd 4.1 cm IVSd 1.8 (0.7-1.1cm) LVDd 4.0 cm PWd 1.2 (0.7-1.1cm) IVSs 1.4 (0.8-1.2cm) LVDs 2.8 (2.5-4.0cm) PWs 1.9 (0.8-1.2cm) LVOT Diameter 1.88 (1.8-2.4cm) LVEF(%) 68.3 (>50%) FS (%) 30.3 % SV 39.7 ml M-Mode Dimensions Left Atrium(MM) 5.76 (2.5-4.0cm) Aortic Root 2.94 (2.2-3.7cm) Aortic Cusp Exc 1.59 (1.5-2.0cm) Aortic Valve AoV Peak Nilesh. 170.4 cm/s AoV VTI 44.1 cm AO Peak GR. 11.6 mmHg AO Mean GR. 7 mmHg LVOT VTI 33.87 cm LVOT Peak Nilesh. 119.6 cm/s CHIRAG (VMAX) 1.94 cm2 CHIRAG (VTI) 2.12 cm2 AI P 1/2 Time 465 ms Mitral Valve MV E Velocity 119.7 cm/s MV DECEL TIME 231 ms MV A Velocity 97.5 cm/s MV PHT 68 ms E/A Ratio 1.2 MVA (PHT) 3.23 cm2 TDI E/Medial E' 15.6 Tricuspid Valve TR P. Velocity 207 cm/s RAP ESTIMATE 10 mmHg TR Peak Gr. 17 mmHg RVSP 27 mmHg Pulmonary Vein S2 Velocity 51.39 cm/s PVa [id number] msec LEFT VENTRICLE Normal LV size and function. Moderate concentric hypertrophy. No LV gradient detected with and withou t Valsalva maneuver. LVEF is 65-70%. RIGHT VENTRICLE RV is mildly dilated with normal sytolic function. ATRIA Left atrium is moderately dilated. Right atrium appears normal in size. AORTIC VALVE Trileaflet AV appears mildly sclerotic without stenosis. Mild insufficiency. MITRAL VALVE Mild MV annular calcification without stenosis. Trace regurgitation. TRICUSPID VALVE TV appears structurally normal with trace regurgitation. PULMONIC VALVE Normal PV without stenosis, mild insufficiency. GREAT VESSELS Aortic root is normal in size. PERICARDIUM Normal pericardium. No effusion. Other Information Study Quality: Adequate Conclusion Normal LV size and function. Moderate concentric hypertrophy. No LV gradient detected with and witho ut Valsalva maneuver. LVEF is 65-70%. RV is mildly dilated with normal sytolic function. Left atrium is moderately dilated. Right atrium appears normal in size. Trileaflet AV appears mildly sclerotic without stenosis. Mild insufficiency. Mild MV annular calcification without stenosis. Trace regurgitation. TV appears structurally normal with trace regurgitation. Normal PV without stenosis, mild insufficiency. Normal pericardium. No effusion.
== END 2025-07-14 23:59 | disposition home or self-care (01) ==
LOC: CARD DIAG 13:49
PROVIDERS: ATTEND Internal Medicine Cardiovascular Disease
DX: I08.8 Other rheumatic multiple valve diseases (principal); I42.2 Other hypertrophic cardiomyopathy
CPT/HCPCS: 93306

== ENCOUNTER 2025-08-11 14:28 | Outpatient (CLI) | payer OTHER ==
--- NOTE | 2025-08-11 16:37 | CARDIOLOGY REPORT ---
APPROVED REPORT EXAM: Comprehensive 2D, Doppler, and color-flow Echocardiogram. Patient Location: OUT-PATIENT Blood Pressure: 86/30 mmHg Heart Rate: 64 bpm Rhythm: SINUS Indications HYPERTROPHIC CARDIOMYOPATHY 6 MONTH CAMZYOS (10 MG) FOLLOW UP Objects Conservator: Beverly Lubin MD Previous echo: 07/14/25 [facility] (EF 65-70%, mild AI, trace MR, trace TR, mild PI) 2D Dimensions IVSd 1.4 (0.7-1.1cm) LVDd 4.3 cm PWd 1.2 (0.7-1.1cm) IVSs 1.6 (0.8-1.2cm) LVDs 2.1 (2.5-4.0cm) PWs 1.4 (0.8-1.2cm) LVOT Diameter 1.80 (1.8-2.4cm) LVEF(%) 72.9 (>50%) FS (%) 51.4 % SV 68.4 ml M-Mode Dimensions Left Atrium(MM) 5.64 (2.5-4.0cm) Aortic Root 3.41 (2.2-3.7cm) Aortic Cusp Exc 2.14 (1.5-2.0cm) Aortic Valve AoV Peak Nilesh. 175.5 cm/s AoV VTI 42.2 cm AO Peak GR. 12.3 mmHg AO Mean GR. 8 mmHg LVOT VTI 38.14 cm LVOT Peak Nilesh. 144.4 cm/s CHIRAG (VMAX) 2.10 cm2 CHIRAG (VTI) 2.31 cm2 AI P 1/2 Time 488 ms Mitral Valve MV E Velocity 107.3 cm/s MV DECEL TIME 313 ms MV A Velocity 84.9 cm/s MV PHT 61 ms E/A Ratio 1.3 MVA (PHT) 3.58 cm2 TDI E/Medial E' 15.2 Tricuspid Valve TR P. Velocity 216 cm/s RAP ESTIMATE 10 mmHg TR Peak Gr. 19 mmHg RVSP 29 mmHg Pulmonary Vein S2 Velocity 33.04 cm/s PVa Duration 126 msec LEFT VENTRICLE Normal LV size and hyperdynamic function. Moderate concentric hypertrophy. No LV gradient detected. Overall LVEF is 70-75%. RIGHT VENTRICLE RV size and function appear normal. ATRIA Left atrium is moderately dilated. AORTIC VALVE Trileaflet AV appears mildly sclerotic without stenosis. Mild insufficiency. MITRAL VALVE Mild MV annular calcification without stenosis. Trace regurgitation. TRICUSPID VALVE TV appears structurally normal with trace regurgitation. PULMONIC VALVE Normal PV without stenosis, physiologic insufficiency. GREAT VESSELS Aortic root is normal in size. PERICARDIUM Normal pericardium. No effusion. Other Information Study Quality: Adequate. Pt BP taken multiple times while sitting. BPs were 93/27, 80/30, 79/30, 86/31. BP after standing increased to 129/55 and 135/53. Conclusion Overall LVEF is 70-75%. Normal LV size and hyperdynamic function. Moderate concentric hypertrophy. No LV gradient detected. RV size and function appear normal. Trileaflet AV appears mildly sclerotic without stenosis. Mild insufficiency. Mild MV annular calcification without stenosis. Trace regurgitation. TV appears structurally normal with trace regurgitation. Normal PV without stenosis, physiologic insufficiency. Normal pericardium. No effusion.
== END 2025-08-11 23:59 | disposition home or self-care (01) ==
LOC: RAD 14:28
PROVIDERS: ATTEND Internal Medicine Cardiovascular Disease
DX: I08.8 Other rheumatic multiple valve diseases (principal); I42.2 Other hypertrophic cardiomyopathy; I42.8 Other cardiomyopathies
CPT/HCPCS: 93306

== ENCOUNTER 2025-11-17 15:14 | Outpatient (CLI) | payer OTHER ==
[~2025-11-17 15:14] MED LIST changes: -METH1TAB32 PO; +METH1TAB69 PO
--- NOTE | 2025-11-17 18:03 | CARDIOLOGY REPORT ---
APPROVED REPORT EXAM: Comprehensive 2D, Doppler, and color-flow Echocardiogram. Patient Location: OUT-PATIENT Blood Pressure: 163/64 mmHg Heart Rate: 65 bpm Rhythm: SINUS Indications HYPERTROPHIC CARDIOMYOPATHY 9 MONTH CAMZYOS (10 MG) FOLLOW UP Lead Caster: Anna Vazquez MD Previous echo: 08/11/25 [facility] (EF 70-75%, moderate LVH, mild AI, trace MR, trace TR) 2D Dimensions IVSd 1.4 (0.7-1.1cm) LVDd 4.0 cm PWd 1.3 (0.7-1.1cm) IVSs 1.5 (0.8-1.2cm) LVDs 2.5 (2.5-4.0cm) PWs 1.7 (0.8-1.2cm) LVOT Diameter 1.83 (1.8-2.4cm) LVEF(%) 68.9 (>50%) FS (%) 38.2 % SV 48.3 ml Aortic Valve AoV Peak Nilesh. 166.7 cm/s AoV VTI 50.8 cm AO Peak GR. 11.1 mmHg AO Mean GR. 7 mmHg LVOT VTI 44.47 cm LVOT Peak Nilesh. 161.4 cm/s CHIRAG (VMAX) 2.54 cm2 CHIRAG (VTI) 2.30 cm2 AI P 1/2 Time 342 ms AV DI 0.88 % Mitral Valve MV E Velocity 147.9 cm/s MV DECEL TIME 311 ms MV A Velocity 120.5 cm/s MV PHT 61 ms E/A Ratio 1.2 MVA (PHT) 3.63 cm2 Tricuspid Valve TR P. Velocity 292 cm/s RAP ESTIMATE 10 mmHg TR Peak Gr. 34 mmHg RVSP 44 mmHg Pulmonary Vein S2 Velocity 50.97 cm/s PVa Duration 100 msec LEFT VENTRICLE Normal LV size and function. Moderate concentric hypertrophy. LV gradient at the septal knuckle measured at 12 mmHg. Gradient did not increase with Valsalva (x3). LVEF is 65-70%. RIGHT VENTRICLE RV is normal size and function. RVSP is estimated at 44 mmHg. ATRIA LA size is normal. AORTIC VALVE Trileaflet AV appears mildly sclerotic without stenosis. Mild insufficiency by color and spectral flow Doppler. MITRAL VALVE Mild MV annular calcification without stenosis. Trace regurgitation by color and spectral flow Doppler. TRICUSPID VALVE TV appears structurally normal with trace regurgitation by color and spectral flow Doppler. PULMONIC VALVE Normal PV without stenosis, physiologic insufficiency by color and spectral flow Doppler. GREAT VESSELS Aortic root is normal in size. PERICARDIUM Normal pericardium. No effusion. Other Information Study Quality: Adequate Conclusion Normal LV size and function. Moderate concentric hypertrophy. LV gradient at the septal knuckle measured at 12 mmHg. Gradient did not increase with Valsalva (x3). LVEF is 65-70%. RV is normal size and function. RVSP is estimated at 44 mmHg. LA size is normal. Trileaflet AV appears mildly sclerotic without stenosis. Mild insufficiency by color and spectral flow Doppler. Mild MV annular calcification without stenosis. Trace regurgitation by color and spectral flow Doppler. TV appears structurally normal with trace regurgitation by color and spectral flow Doppler. Normal pericardium. No effusion.
== END 2025-11-17 23:59 | disposition home or self-care (01) ==
LOC: RAD 15:14
PROVIDERS: ATTEND Nurse Practitioner Adult Health
DX: I08.8 Other rheumatic multiple valve diseases (principal); I42.8 Other cardiomyopathies; I42.2 Other hypertrophic cardiomyopathy
CPT/HCPCS: 93306